=== PATIENT | female | born 1955 | race Caucasian/White ===

== ENCOUNTER 2024-04-25 14:58 | Emergency (ER) | payer MEDICARE, BC ==
[~2024-04-25] VITALS: Ht 172.7 cm; Wt 83.5 kg
[2024-04-25] MEDS ORDERED: RISE150T PO (15:17)
[2024-04-25] MEDS ORDERED: LEVO112T2 PO (15:17)
[2024-04-25] MEDS: ONDANSETRON 4MG 2ML VIAL IV ONE (15:54)
[2024-04-25] MEDS: MORPHINE 4 MG/ML 1ML VIAL IV ONE (15:55)
[2024-04-25] MEDS: KETOROLAC 30 MG/ML 1ML VIAL IV ONE (16:54)
[2024-04-25] MEDS: MORPHINE 4 MG/ML 1ML VIAL IV PRN (20:23)
[2024-04-25] MEDS ORDERED: HYDR-3713 PO (20:33)
[2024-04-25] MEDS: NORCO 5/325MG TABLET (HOME DOSE PACK) PO ONE (20:37)
[2024-04-25 20:41] VITALS: BP 124/88; TEMP 98.8; O2SAT 98
== END 2024-04-25 20:34 | disposition home or self-care (01) ==
LOC: EDBD 14:58 → M ED 14:58
DX: S22.080A Wedge compression fracture of T11-T12 vertebra, initial encounter for closed fracture (principal); W18.30XA Fall on same level, unspecified, initial encounter; Y92.009 Unspecified place in unspecified non-institutional (private) residence as the place of occurrence of the external cause; Y93.9 Activity, unspecified; Y99.9 Unspecified external cause status
CPT/HCPCS: 72131; 72220; 80047; 96374; 96375; 96376; 99284; J1885; J2405